=== PATIENT | male | born 1940 | race Caucasian/White ===

== ENCOUNTER → 2023-01-16 09:04 | Outpatient (CLI) | payer OTHER, SELFPAY ==
--- NOTE | 2023-01-16 | DI.ECHO.S_ITS ---
[facility] +---------+ : : [address] : [address] [place] [address] : : : : [id number] : : : : Phone: [phone]+ Echocardiogram Report + + :Name: ZEHRA MARTE Study Date: 01/16/2023 Height: 67 in : :[facility] ReadingLocation: Weight: 180 lb : : Gender: Male BSA: 1.9 m2 : :: 1940 Age: 82 yrs BP: 144/88 mmHg: :Reason For Study: H&P EVALUATION : :Ordering Physician: IDRIS, : :FELICITY Performed By: Claudia Brooek : :Referring: FELICITY STEINBERG : + + Interpretation Summary Normal sinus rhythm. Normal LV size and wall thickness; normal wall motion and LV systolic function. EF is 60-65%. Normal chamber sizes. No valvular abnormalities. No prior study available for comparison. Procedure: A two-dimensional transthoracic echocardiogram with color flow and Doppler was performed. The study quality was technically adequate. There is no prior echocardiogram noted for this patient. The patient was in sinus rhythm with heart rates between 69-76 bpm during the exam. Left Ventricle: The left ventricle is normal in size and wall thickness. The ejection fraction is estimated to be 60-65%. Right Ventricle: The right ventricle is normal in size and function. Atria: The left atrium is mildly dilated. Right atrial size is normal. There is no Doppler evidence for an interatrial shunt. Mitral Valve: The mitral valve is normal in structure and function. There is mild mitral regurgitation. Aortic Valve: The aortic valve is trileaflet. The aortic valve opens well. There is no aortic valve stenosis. No aortic regurgitation is present. Tricuspid Valve: The tricuspid valve is normal in structure and function. There is mild tricuspid regurgitation. Right ventricular systolic pressure is estimated to be 22 mmHg plus the clinically estimated CVP which cannot be estimated on this exam. Pulmonic Valve: The pulmonic valve is not well seen, but is grossly normal. There is no pulmonic valvular regurgitation. Great Vessels: The aortic root is normal size. The dimensions of the ascending aorta are normal. The inferior vena cava was not well visualized. Pericardium/ Pleura There is no pericardial effusion. There is no pleural effusion. MMode/2D Measurements & Calculations LVIDd: 4.0 cm LVOT diam: 1.9 cm LVIDs: 2.6 cm Ao root diam: 2.8 cm FS: 35.6 % asc Aorta Diam: 3.0 cm EPSS: 0.68 cm IVSd: 0.86 cm LVPWd: 0.86 cm LV garcía. diameter/BSA (cm/m^2): 2.1 LV sys. diameter/BSA (cm/m^2): 1.3 LA A2 area: 21.7 cm2 RA long axis: 5.6 cm LA A4 area: 20.0 cm2 RA area: 16.9 cm2 LA length (vol): 5.2 cm RA vol: 43.6 ml LA vol: 71.2 ml RA : 22.6 ml/m2 LA vol index: 36.8 ml/m2 RVD1 (basal): 3.8 cm RVD2 (mid): 3.2 cm TAPSE: 1.8 cm Doppler Measurements & Calculations Ao V2 max: 118.1 cm/sec LVOT Max Jony: 111.3 cm/sec Ao V2 mean: 86.4 cm/sec LV V1 max P.0 mmHg Ao max P.6 mmHg LV V1 VTI: 24.2 cm Ao mean P.2 mmHg DEQUAN(I,D): 2.9 cm2 Ao V2 VTI: 22.7 cm DEQUAN(V,D): 2.6 cm2 sev ratio: 1.1 DEQUAN indexed to BSA (cm^2/m^2): 1.5 MV E max jony: 74.6 cm/sec TR max jony: 235.9 cm/sec MV A max jony: 84.4 cm/sec TR max P.3 mmHg MV E/A: 0.88 PA V2 max: 102.2 cm/sec Med Peak E' Jony: 5.9 cm/sec PA V2 mean: 69.5 cm/sec E/E' med: 12.6 PA mean P.2 mmHg Lat Peak E' Jony: 7.9 cm/sec PA pr(Accel): 31.0 mmHg E/E' lat: 9.4 E/e' average: 11.0 MV dec time: 0.26 sec SV(LVOT): 66.3 ml Electronically signed by: Dee Moses M.D. on Reading Physician:01/17/2023 02:10 AM
== END ==
PROVIDERS: Visit Provider Orthopaedic Surgery
DX: Z00.00 Encounter for general adult medical examination without abnormal findings (principal); I08.1 Rheumatic disorders of both mitral and tricuspid valves
CPT/HCPCS: 93306